=== PATIENT | female | born 1935 | race Caucasian/White ===

== ENCOUNTER 2019-02-17 10:36 | Inpatient (IN) | payer BC ==
--- NOTE | 2019-02-13 16:31 | HP ---
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 History Source: Patient Limitations to Obtaining History: No Limitations - Past Medical History Cardiovascular: Yes: AFIB, CHF, HTN, Hyperlipdemia, Other (Mitral valve repair) - Past Surgical History Past Surgical History: Yes: Stent (cardiac 1999) Additional Past Surgical History: valve repair mitral 2015 open heart surgery left partial mastectomy 2012 DCIS - Smoking History Smoking history: Never smoked Have you smoked in the past 12 months: No - Alcohol/Substance Use Hx Alcohol Use: Yes (MODERATE SOCIAL) Home Medications - Allergies Allergies/Adverse Reactions: Allergies Allergy/AdvReac Type Severity Reaction Status Date / Time latex Allergy Mild SKIN Verified 02/16/13 13:28 IRRITATION No Known Drug Allergies Allergy Verified 02/16/13 13:28 - Home Medications Home Medications: Ambulatory Orders Ascorbic Acid [Vitamin C] 1,000 mg PO HS 02/16/13 Cetirizine HCl [Zyrtec] 10 mg PO HS 02/16/13 Cholecalciferol (Vitamin D3) [Vitamin D] 1,000 unit PO HS 02/16/13 Ezetimibe/Simvastatin [Vytorin 10-40 mg Tablet] 1 each PO HS 02/16/13 Fluticasone Prop 0.05% Nasal [Flonase -] 1 - 2 spray NS DAILY PRN 02/16/13 Folic Acid - 1 mg PO HS 02/16/13 Lansoprazole [Prevacid] 30 mg PO DAILY PRN 02/16/13 Lorazepam 0.5 mg PO HS 02/16/13 Metoprolol Succinate [Toprol XL -] 50 mg PO HS 02/16/13 Multivitamin [Multivitamins] 1 each PO HS 02/16/13 Valsartan/Hydrochlorothiazide [Diovan Hct 160-12.5 mg Tablet -] 1 combo PO DAILY 02/16/13 Aspirin Coated [Ecotrin -] 81 mg PO HS #0 02/18/13 Hydrocodone Bit/Acetaminophen [Vicodin Es 7.5-750] 1 tab PO PRN PRN #0 tablet Family Disease History - Family Disease History Family Disease History: CA: Father (bladder ca 67) Physical Examination Constitutional: Yes: No Distress Breast(s): Yes: Other (diffusely nodular and dense in the middle of the left breast incision there is some retraction w?o mass well healed strnal incision no adenopathy. right breast negative) Problem List - Problems (1) Recurrent cancer of left breast Code(s): C50.912 - MALIGNANT NEOPLASM OF UNSPECIFIED SITE OF LEFT FEMALE BREAST Assessment/Plan Left total mastectomy sentenel node biopsy, lymphoscintogram possible axillary node dissection implants and alloderm by Dr Ortega
[2019-02-16 08:46] VITALS: BMI 28.3
[2019-02-17 11:59] LABS: INR 0.96 (0.83-1.09); PROTHROMBIN TIME (PATIENT) 11.3 SEC (9.7-13.0)
[2019-02-17] MEDS ORDERED: fentaNYL CITRATE 250 MCG/5 ML VIAL ONE (15:05)
[2019-02-17] MEDS ORDERED: MIDAZOLAM HCL 2 MG/2 ML SINGLE DOSE VIAL ONE (15:05)
[2019-02-17] MEDS ORDERED: PROPOFOL 20 ML ONE (15:05)
[2019-02-17] MEDS ORDERED: LIDOCAINE HCL/PF 2% SDV 5ML VIAL ONE (15:07)
[2019-02-17] MEDS ORDERED: ONDANSETRON 4 MG/2 ML VIAL IVPUSH PRN ×2 (15:26→15:48)
[2019-02-17] MEDS ORDERED: LACTATED RINGERS SOLUTION 1,000 ML IV SCH (15:30)
[2019-02-17] MEDS ORDERED: ACETAMINOPHEN 325 MG TABLET (FP) PO PRN (15:48)
[2019-02-17] MEDS ORDERED: PATIENT'S OWN MEDICATION (NON-FORMULARY) (Cetirizine Hcl 10 MG) PO SCH (16:00)
[2019-02-17] MEDS ORDERED: ISOSULFAN BLUE 10 MG/ML VIAL SQ ONE (16:05)
[2019-02-17] MEDS ORDERED: GENTAMICIN SO4 80 MG/2 ML VIAL ONE (16:18)
[2019-02-17] MEDS ORDERED: ceFAZolin SODIUM 1 GM VIAL ONE ×3 (16:19→20:55)
[2019-02-17] MEDS ORDERED: ceFAZolin SODIUM 1 GM VIAL IVPB ONE (16:30)
[2019-02-17] MEDS ORDERED: HYDROmorphone HCl 2 MG/ML VIAL ONE (17:10)
[2019-02-17] MEDS ORDERED: METOPROLOL TARTRATE 5 MG/5 ML VIAL ONE (17:40)
[2019-02-17] MEDS ORDERED: VECURONIUM BROMIDE 10 MG VIAL ONE (17:52)
[2019-02-17] MEDS ORDERED: EPHEDRINE SULFATE/0.9% NACL/PF 50 MG/10 ML SYRINGE NR ONE ×2 (18:37→18:39)
[2019-02-17] MEDS ORDERED: ACETAMINOPHEN INJECTION 100 ML IVPB ONE (20:20)
[2019-02-17] MEDS ORDERED: ACETAMINOPHEN 1000 MG/100 ML VIAL (NON FORMULARY) IVPB ONE (20:22)
[2019-02-17] MEDS: DEXTROSE 5%-0.45% SALINE 1,000 ML IV SCH (21:00)
[2019-02-17] MEDS ORDERED: CEFAZOLIN 1 GM/D5W 1 GM/50 ML BAG IVPB SCH (21:00)
[2019-02-17] MEDS ORDERED: ONDANSETRON 4 MG/2 ML VIAL ONE (21:36)
[2019-02-17] MEDS: LORazepam 0.5 MG TABLET PO SCH (22:03)
[2019-02-17] MEDS: ATORVASTATIN CA 10 MG TABLET (FP) PO SCH (23:38)
[2019-02-17] MEDS: metoPROLOL SUCCINATE 25 MG TAB.SR.24H (FP) PO SCH (23:38)
[2019-02-17] MEDS: CYCLOBENZAPRINE HCL 10 MG TABLET (FP) PO PRN (23:51)
[2019-02-18] MEDS ORDERED: DEXTROSE 5%-WATER - 50 ML IVPB ONE ×4 (02:35→21:25)
[2019-02-18] MEDS ORDERED: ceFAZolin SODIUM 1 GM VIAL ONE ×4 (02:35→21:24)
[2019-02-18] MEDS ORDERED: oxyCODONE HCL 5 MG TABLET PO PRN ×3 (03:12→15:27)
[2019-02-18] MEDS: CEFAZOLIN 1 GM in DEXTROSE 5%-WATER - 50 ML IVPB SCH ×4 (03:34→21:10)
[2019-02-18] MEDS: oxyCODONE HCL 5 MG TABLET PO PRN ×3 (06:14→23:20)
[2019-02-18 06:33] LABS: HEMATOCRIT 38.1 % (32.4-45.2); HEMOGLOBIN 13.2 GM/dL (10.7-15.3); MCHC 34.6 g/dl (32.0-36.0); MEAN CELL VOLUME 92.7 fl (80-96); MEAN PLT VOLUME 8.3 fl (7.5-11.1); PLATELET COUNT 190 K/MM3 (134-434); RBC 4.11 M/mm3 (3.60-5.2); RDW 15.1 % (11.6-15.6); WHITE BLOOD COUNT 13.9 K/mm3 (4.0-10.0)
--- NOTE | 2019-02-18 08:59 | PN ---
Progress Note, Physician Chief Complaint: Left breast cancer S/P left breast total mastectomy sentenel node biopsy reconstruction with alloderm and implant and right mastopexy History of Present Illness: patient is using spirometry, calhoun discontinued, using oxycodone for pain ,will involve cardilogy to restert her coumadin and aspirin no nausea or vomiting - Current Medication List Current Medications: Active Medications Acetaminophen (Tylenol -) 650 mg PO Q4H PRN PRN Reason: FEVER Last Admin: 02/17/19 23:51 Dose: 650 mg Atorvastatin Calcium (Lipitor -) 10 mg PO HS [facility] Last Admin: 02/17/19 23:38 Dose: 10 mg Cyclobenzaprine HCl (Flexeril -) 10 mg PO BID PRN PRN Reason: MUSCLE SPASMS Last Admin: 02/17/19 23:51 Dose: 10 mg Furosemide (Lasix -) 40 mg PO DAILY [facility] Heparin Sodium (Porcine) (Heparin -) 5,000 unit SQ BID [facility] Dextrose/Sodium Chloride (D5-1/2ns -) 1,000 mls @ 100 mls/hr IV ASDIR [facility] Last Admin: 02/17/19 21:00 Dose: 100 mls/hr Cefazolin Sodium 1 gm/ (Dextrose) 50 mls @ 100 mls/hr IVPB Q6H-IV [facility] Stop: 02/24/19 20:59 Last Admin: 02/18/19 03:34 Dose: 100 mls/hr Lactobacillus Acidophilus (Bacid -) 1 tab PO DAILY [facility] Loratadine (Claritin -) 10 mg PO DAILY [facility] Lorazepam (Ativan -) 1 mg PO BID [facility] Last Admin: 02/17/19 22:03 Dose: 1 mg Methimazole (Tapazole -) 5 mg PO DAILY [facility] Metoprolol Succinate (Toprol Xl -) 25 mg PO BID [facility] Last Admin: 02/17/19 23:38 Dose: 25 mg Ondansetron HCl (Zofran Injection) 4 mg IVPUSH Q6H PRN PRN Reason: NAUSEA AND/OR VOMITING Last Admin: 02/17/19 21:38 Dose: 4 mg Oxycodone HCl (Roxicodone -) 5 mg PO Q3H PRN PRN Reason: PAIN LEVEL 6-10 Last Admin: 02/18/19 06:14 Dose: 5 mg Pantoprazole Sodium (Protonix -) 40 mg PO DAILY [facility] Potassium Chloride (K-Dur -) 20 meq PO DAILY [facility] - Objective Vital Signs: Vital Signs Temperature 98.3 F 02/18/19 06:59 Pulse Rate 81 02/18/19 06:59 Respiratory Rate 20 02/18/19 06:59 Blood Pressure 135/85 02/18/19 06:59 O2 Sat by Pulse Oximetry (%) 100 02/17/19 22:25 Constitutional: Yes: No Distress Breast(s): Yes: Other (bilateral flaps viable incision intact with steristrips drain functioning well minimal brusion right breast small area echynosis near imframamary fold. left breast moderate echymosis) Labs: CBC, BMP 02/18/19 05:48 INR, PTT INR 0.96 (0.83-1.09) 02/17/19 10:47 Problem List - Problems (1) Recurrent cancer of left breast Code(s): C50.912 - MALIGNANT NEOPLASM OF UNSPECIFIED SITE OF LEFT FEMALE BREAST Assessment/Plan OOB with assistance calhoun DCd Iv antibiotics oxycodone prn, anesthesia to see patinet today colace prn cardilogy consult per Dr day to restar coumadin and ASA VNS service
--- NOTE | 2019-02-18 09:36 | CON.CARD ---
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 History Source: Patient Limitations to Obtaining History: No Limitations - Past Medical History Cardiovascular: Yes: AFIB, CHF, HTN, Hyperlipdemia, Other (Mitral valve repair) - Past Surgical History Past Surgical History: Yes: Stent (cardiac 1999) Additional Past Surgical History: valve repair mitral 2016 open heart surgery left partial mastectomy 2012 DCIS - History Source History Provided By: Patient, Medical Record - Past Medical History Cardio/Vascular: Yes: AFIB, CHF, HTN, Hyperlipdemia, Other (Mitral valve repair) - Past Surgical History Past Surgical History: Yes: Stent (cardiac 1999) - Alcohol/Substance Use Hx Alcohol Use: Yes (MODERATE SOCIAL) - Smoking History Smoking history: Never smoked Have you smoked in the past 12 months: No Home Medications - Allergies Allergies/Adverse Reactions: Allergies Allergy/AdvReac Type Severity Reaction Status Date / Time escitalopram [From Lexapro] Allergy Intermediate Rash Verified 02/17/19 11:35 latex Allergy Mild SKIN Verified 02/17/19 11:35 IRRITATION SEASONAL Allergy Uncoded 02/17/19 11:35 - Home Medications Home Medications: Ambulatory Orders Ascorbic Acid [Vitamin C] 980 mg PO DAILY 02/16/13 Cholecalciferol (Vitamin D3) [Vitamin D] 1,000 unit PO ASDIR 02/16/13 Lorazepam 1 mg PO BID 02/16/13 Metoprolol Succinate [Toprol XL -] 25 mg PO BID 02/16/13 Aspirin Coated [Ecotrin -] 81 mg PO HS #0 02/18/13 Cyclobenzaprine HCl 10 mg PO BID PRN 02/16/19 Furosemide [Lasix] 40 mg PO DAILY 02/16/19 Lactobacillus Acidophilus [Probiotic] 1 each PO DAILY 02/16/19 Lovastatin [Altoprev] 20 mg PO DAILY 02/16/19 Methimazole 5 mg PO DAILY 02/16/19 Pantoprazole Sodium 40 mg PO DAILY 02/16/19 Potassium Chloride [Klor-Con M20] 20 meq PO DAILY 02/16/19 Warfarin Na [Coumadin] 4 mg PO HS 02/16/19 Zolpidem Tartrate [Ambien] 10 mg PO HS 02/16/19 Cetirizine HCl [Zyrtec -] 10 mg PO PRN 02/17/19 Family Disease History - Family Disease History Family Disease History: CA: Father (bladder ca 67) Review of Systems - Review of Systems Constitutional: reports: No Symptoms Eyes: reports: No Symptoms HENT: reports: No Symptoms Neck: reports: No Symptoms Cardiovascular: reports: No Symptoms Respiratory: reports: No Symptoms Gastrointestinal: reports: No Symptoms Genitourinary: reports: No Symptoms Breasts: reports: No Symptoms Reported Musculoskeletal: reports: No Symptoms Integumentary: reports: No Symptoms Neurological: reports: No Symptoms Endocrine: reports: No Symptoms Hematology/Lymphatic: reports: No Symptoms Psychiatric: reports: No Symptoms Vital Signs: Vital Signs Temperature 98.3 F 02/18/19 06:59 Pulse Rate 81 02/18/19 06:59 Respiratory Rate 20 02/18/19 06:59 Blood Pressure 135/85 02/18/19 06:59 O2 Sat by Pulse Oximetry (%) 100 02/17/19 22:25 Constitutional: Yes: Well Nourished, No Distress, Calm Eyes: Yes: WNL, Conjunctiva Clear, EOM Intact HENT: Yes: WNL, Atraumatic, Normocephalic Neck: Yes: WNL, Supple, Trachea Midline Respiratory: Yes: WNL, Regular, CTA Bilaterally Gastrointestinal: Yes: WNL, Normal Bowel Sounds Renal/: Yes: WNL Cardiovascular: Yes: WNL, Regular Rate and Rhythm Musculoskeletal: Yes: WNL Extremities: Yes: WNL Integumentary: Yes: WNL Neurological: Yes: WNL, Alert, Oriented ...Motor Strength: WNL Psychiatric: Yes: WNL, Alert, Oriented - Other Data Labs, Other Data: CBC, BMP 02/18/19 05:48 INR, PTT INR 0.96 (0.83-1.09) 02/17/19 10:47 Imaging - Results Chest X-ray: Pending EKG: Image Reviewed (sr vps rbbb) Problem List - Problems (1) Recurrent cancer of left breast Code(s): C50.912 - MALIGNANT NEOPLASM OF UNSPECIFIED SITE OF LEFT FEMALE BREAST Assessment/Plan A/p: 84 yo female POD#1 s/p Left mastectomy adn sentinel node. Right breast mastopexy an reconstruciton with alloderm and implant AF s/p MV repair [facility] Fenton [facility] 2017 ECHO pending ekg nsr Plan; check BMP restart AC Lovenox/Coumadin as soon as safe from surgical point of viwe . Cardiac haider stable.
[2019-02-18] MEDS ORDERED: PT OWN MED DRAWER 7, Y5N ONE ×2 (09:40→17:09)
[2019-02-18] MEDS: LORazepam 0.5 MG TABLET PO SCH ×2 (09:58→21:05)
[2019-02-18] MEDS: FUROSEMIDE 40 MG TABLET (FP) PO SCH ×2 (09:59→11:10)
[2019-02-18] MEDS: LACTOBACILLUS ACIDOPHILUS 1 TABLET PO SCH (09:59)
[2019-02-18] MEDS: LORATADINE 10 MG TABLET PO SCH (10:00)
[2019-02-18] MEDS ORDERED: PATIENT'S OWN MEDICATION (NON-FORMULARY) (Lactobacillus Acidophilus [Probiotic] 1 EACH) PO SCH (10:00)
[2019-02-18] MEDS: CYCLOBENZAPRINE HCL 10 MG TABLET (FP) PO PRN ×2 (10:00→23:19)
[2019-02-18] MEDS: POTASSIUM CHLORIDE TABS 20 MEQ TABLET.ER (FP) PO SCH ×2 (10:00→11:09)
[2019-02-18] MEDS: DOCUSATE SODIUM 100 MG CAPSULE (FP) PO PRN (10:00)
[2019-02-18] MEDS: metoPROLOL SUCCINATE 25 MG TAB.SR.24H (FP) PO SCH ×2 (10:00→22:13)
[2019-02-18] MEDS: PANTOPRAZOLE 40 MG TABLET (FP) PO SCH (10:00)
[2019-02-18] MEDS ORDERED: PATIENT'S OWN MEDICATION (NON-FORMULARY) (Lovastatin [Altoprev] 20 MG) PO SCH (10:00)
[2019-02-18] MEDS: HEPARIN NA (PORCINE) 5,000 UNITS/ML 1ML VIAL SQ SCH ×3 (10:01→22:13)
[2019-02-18] MEDS: METHIMAZOLE 5 MG TABLET (FP) PO SCH (10:05)
--- NOTE | 2019-02-18 10:12 | PN ---
Progress Note (short form) - Note Progress Note: POD#1 Pt without any complaints of CP/SOB. Bra a little tight around her ribs. Some pain with movement of left arm. Vital Signs Period Temp Pulse Resp BP Sys/Reagan Pulse Ox Last 24 Hr 97.8 F-98.3 F 72-98 14-20 119-135/41-90 98-100 SAHARA: serosangnreous Left x2-45 and 60ml right 5ml GEN: A&0x3, NAD Chest: Right nipple pink and without any evidence of ischemia. Mild ecchymosis to vertical incision(dime sized) near horizontal incision. All incision c/d/i with steri-strips and no active bleeding noted. Left breast: Incision c/d/i as well as axillary incision. No evidence of ischemia. CBC, BMP 02/18/19 05:48 A/p: 84 yo female s/p Left mastectomy adn sentinel node. Right breast mastopexy an reconstruciton with alloderm and implant Dressing changed and SAHARA functioning well. Continue surgical bra Removed calhoun catheter for TOV OOB to chair and ambulate Oral pain medications. SAHARA care and VNS for home care for drains D/w Dr. Ortega
--- NOTE | 2019-02-18 12:25 | EKG ---
Test Reason : Blood Pressure : / mmHG Vent. Rate : 076 BPM Atrial Rate : 076 BPM P-R Int : 172 ms QRS Dur : 136 ms QT Int : 408 ms P-R-T Axes : 065 020 018 degrees QTc Int : 459 ms SINUS RHYTHM WITH PREMATURE SUPRAVENTRICULAR COMPLEXES RIGHT BUNDLE BRANCH BLOCK ABNORMAL ECG NO PREVIOUS ECGS AVAILABLE Confirmed by RK JULIEN MD ([id number]) on 02/18/2019 12:25:27 PM Referred By: Jenny Ayala Confirmed By:RK JULIEN MD
[2019-02-18 13:38] LABS: BLOOD UREA NITROGEN 11.7 mg/dL (7-18); CALCIUM 8.5 mg/dL (8.5-10.1); CREATININE 0.9 mg/dL (0.55-1.3); POTASSIUM 4.1 mmol/L (3.5-5.1)
[2019-02-18] MEDS ORDERED: ACETAMINOPHEN 1000 MG/100 ML VIAL (NON FORMULARY) IVPB ONE (14:03)
[2019-02-18] MEDS ORDERED: MORPHINE SULFATE 2 MG/ML VIAL IVPUSH PRN (14:05)
--- NOTE | 2019-02-18 15:20 | PN ---
Progress Note (short form) - Note Progress Note: Anesthesia post op Pt seen and examined S:alert and awake voices discomfort and unable to sleep because of noise O: Vital Signs Temperature 98.1 F 02/18/19 10:00 Pulse Rate 71 02/18/19 10:00 Respiratory Rate 20 02/18/19 10:00 Blood Pressure 131/65 02/18/19 10:00 O2 Sat by Pulse Oximetry (%) 98 02/18/19 09:00 CBC, BMP 02/18/19 05:48 02/18/19 05:48 a/P:s/p Right breat reduction and left mastectomy Eats meals. Due to her age PO pain meds were give in divided doses. Discussed about LAUNCH MANAGER. At this time will continue with PO med. Will add IV Ofirmev. Advised pt to take Benzodiazepam that she takes at home and sleeping pills if necessary. Also advised that take the whole 10mg PO Oxycontin in the AM Will be available if further pain control is necessary. Jermaine Wu MD
[2019-02-18] MEDS ORDERED: BENZOCAINE/MENTH/CETYLPYRD CL 1 EACH LOZENGE MM PRN (15:22)
[2019-02-18] MEDS ORDERED: ACETAMINOPHEN 1000 MG/100 ML VIAL (NON FORMULARY) IVPB PRN (15:24)
--- NOTE | 2019-02-18 15:38 | PN ---
Progress Note (short form) - Note Progress Note: discussed case with cardiology office and Dr Loaiza. Advised to start coumadin 4 mg this evening and she should follow up with shank turner on Saturday for INR. Dr Loaiza advised to continue SQ heparin daily. posssible discharge patient home tomorrow or Saturday. Problem List - Problems (1) Recurrent cancer of left breast Code(s): C50.912 - MALIGNANT NEOPLASM OF UNSPECIFIED SITE OF LEFT FEMALE BREAST
[2019-02-18] MEDS: DEXTROSE 5%-0.45% SALINE 1,000 ML IV SCH (16:41)
[2019-02-18] MEDS: WARFARIN NA 2 MG TABLET (UD) PO SCH ×2 (18:22→22:21)
[2019-02-18] MEDS: ATORVASTATIN CA 10 MG TABLET (FP) PO SCH (22:13)
[2019-02-18] MEDS: ACETAMINOPHEN 325 MG TABLET (FP) PO SCH (23:35)
[2019-02-19] MEDS ORDERED: ceFAZolin SODIUM 1 GM VIAL ONE ×4 (03:25→20:16)
[2019-02-19] MEDS ORDERED: DEXTROSE 5%-WATER - 50 ML IVPB ONE ×4 (03:25→20:17)
[2019-02-19] MEDS: CEFAZOLIN 1 GM in DEXTROSE 5%-WATER - 50 ML IVPB SCH ×4 (03:40→20:27)
[2019-02-19] MEDS: ACETAMINOPHEN 325 MG TABLET (FP) PO SCH ×4 (03:40→22:34)
--- NOTE | 2019-02-19 07:08 | PN ---
Progress Note (short form) - Note Progress Note: POD 2 VSS AF All tissues viable without infection or collection All SAHARA working well/ serosanguinous fluid Ambulating, Using IS Anticoagulation restarted Cont ABX Wean from [employer] ADMIN[employer]RATOR anticipate d/c home tomorrow.
--- NOTE | 2019-02-19 08:19 | PN ---
Progress Note, Physician History of Present Illness: Left breast cancer - Current Medication List Current Medications: Active Medications Acetaminophen (Tylenol -) 650 mg PO Q6H [facility] Last Admin: 02/19/19 03:40 Dose: Not Given Acetaminophen (Ofirmev Injection -) 1,000 mg IVPB Q6H PRN PRN Reason: PAIN LEVEL 4 - 6 Last Admin: 02/18/19 23:22 Dose: 1,000 mg Aspirin (Ecotrin -) 81 mg PO DAILY [facility] Atorvastatin Calcium (Lipitor -) 10 mg PO HS [facility] Last Admin: 02/18/19 22:13 Dose: 10 mg Benzocaine/Menthol (Cepacol Lozenge -) 1 each MM PRN PRN PRN Reason: SORE THROAT Cyclobenzaprine HCl (Flexeril -) 10 mg PO BID PRN PRN Reason: MUSCLE SPASMS Last Admin: 02/18/19 23:19 Dose: 10 mg Docusate Sodium (Colace -) 100 mg PO DAILY PRN PRN Reason: CONSTIPATION Last Admin: 02/18/19 10:00 Dose: 100 mg Furosemide (Lasix -) 40 mg PO DAILY [facility] Last Admin: 02/18/19 11:10 Dose: Not Given Heparin Sodium (Porcine) (Heparin -) 5,000 unit SQ BID [facility] Last Admin: 02/18/19 22:13 Dose: 5,000 unit Cefazolin Sodium 1 gm/ (Dextrose) 50 mls @ 100 mls/hr IVPB Q6H-IV [facility] Stop: 02/24/19 20:59 Last Admin: 02/19/19 03:40 Dose: 100 mls/hr Lactobacillus Acidophilus (Bacid -) 1 tab PO DAILY [facility] Last Admin: 02/18/19 09:59 Dose: 1 tab Loratadine (Claritin -) 10 mg PO DAILY [facility] Last Admin: 02/18/19 10:00 Dose: 10 mg Lorazepam (Ativan -) 1 mg PO BID [facility] Last Admin: 02/18/19 21:05 Dose: 1 mg Methimazole (Tapazole -) 5 mg PO DAILY [facility] Last Admin: 02/18/19 10:05 Dose: 5 mg Metoprolol Succinate (Toprol Xl -) 25 mg PO BID [facility] Last Admin: 02/18/19 22:13 Dose: 25 mg Morphine Sulfate (Morphine Sulfate) 1 mg IVPUSH Q6H PRN PRN Reason: PAIN LEVEL 7 - 10 Ondansetron HCl (Zofran Injection) 4 mg IVPUSH Q6H PRN PRN Reason: NAUSEA AND/OR VOMITING Last Admin: 02/17/19 21:38 Dose: 4 mg Oxycodone HCl (Roxicodone -) 10 mg PO Q4H PRN PRN Reason: PAIN LEVEL 6-10 Stop: 02/19/19 15:25 Last Admin: 02/18/19 23:20 Dose: 5 mg Pantoprazole Sodium (Protonix -) 40 mg PO DAILY [facility] Last Admin: 02/18/19 10:00 Dose: 40 mg Potassium Chloride (K-Dur -) 20 meq PO DAILY [facility] Last Admin: 02/18/19 11:09 Dose: Not Given Warfarin Sodium (Coumadin -) 4 mg PO DAILY@1800 [facility] Last Admin: 02/18/19 22:21 Dose: 4 mg - Objective Vital Signs: Vital Signs Temperature 97.6 F 02/19/19 05:31 Pulse Rate 68 02/19/19 05:31 Respiratory Rate 20 02/19/19 05:31 Blood Pressure 110/45 L 02/19/19 05:31 O2 Sat by Pulse Oximetry (%) 99 02/18/19 21:00 Constitutional: Yes: Well Nourished, No Distress, Calm Eyes: Yes: WNL HENT: Yes: WNL Neck: Yes: Supple, Trachea Midline Respiratory: Yes: Regular, CTA Bilaterally Gastrointestinal: Yes: Normal Bowel Sounds, Soft ...Rectal Exam: Yes: Deferred Genitourinary: Yes: WNL Breast(s): Yes: Other (Breast wounds clean, dry, and intact. Drains functioning well.) Musculoskeletal: Yes: WNL Extremities: Yes: WNL Wound/Incision: Yes: Clean/Dry, Well Approximated Neurological: Yes: Alert, Oriented ...Motor Strength: WNL Psychiatric: Yes: WNL Labs: CBC, BMP 02/18/19 05:48 02/18/19 05:48 INR, PTT INR 0.96 (0.83-1.09) 02/17/19 10:47 Problem List - Problems (1) Recurrent cancer of left breast Assessment/Plan: The patient is doing well POD#2 s/p left mastectomy with sentinel lymph node biopsy with left implant reconstruction and right mastopexy. Wounds clean, dry , and intact. Drains functioning well. Good pain control now on percocet. OOB ambulating today. Coumadin restarted and patient receiving heparin subQ. Plan for discharge tomorrow and arrange VNS for drain care at home. Follow up with Drs. Ayala and Jordan in 1 week. Will restart her daily baby aspirin. Code(s): C50.912 - MALIGNANT NEOPLASM OF UNSPECIFIED SITE OF LEFT FEMALE BREAST
[2019-02-19] MEDS ORDERED: PT OWN MED DRAWER 7, Y5N ONE (08:59)
[2019-02-19 09:07] LABS: INR 1.18 (0.83-1.09)
[2019-02-19] MEDS: PANTOPRAZOLE 40 MG TABLET (FP) PO SCH (09:16)
[2019-02-19] MEDS: DOCUSATE SODIUM 100 MG CAPSULE (FP) PO PRN (09:16)
[2019-02-19] MEDS: CYCLOBENZAPRINE HCL 10 MG TABLET (FP) PO PRN (09:16)
[2019-02-19] MEDS: POTASSIUM CHLORIDE TABS 20 MEQ TABLET.ER (FP) PO SCH (09:18)
[2019-02-19] MEDS: LORazepam 0.5 MG TABLET PO SCH ×2 (09:19→22:32)
[2019-02-19] MEDS: HEPARIN NA (PORCINE) 5,000 UNITS/ML 1ML VIAL SQ SCH ×2 (09:19→22:30)
[2019-02-19] MEDS: LORATADINE 10 MG TABLET PO SCH (09:20)
[2019-02-19] MEDS: LACTOBACILLUS ACIDOPHILUS 1 TABLET PO SCH (09:20)
[2019-02-19] MEDS: ASPIRIN COATED 81 MG TABLET.EC PO SCH (09:21)
[2019-02-19] MEDS: metoPROLOL SUCCINATE 25 MG TAB.SR.24H (FP) PO SCH ×2 (09:21→22:32)
[2019-02-19] MEDS: METHIMAZOLE 5 MG TABLET (FP) PO SCH (09:21)
[2019-02-19] MEDS: FUROSEMIDE 40 MG TABLET (FP) PO SCH (09:21)
--- NOTE | 2019-02-19 09:37 | SPA.POSTOP ---
- POST-OP NOTE POD #2 s/p left mastectomy with sentinel lymph node biopsy with left implant reconstruction and right mastopexy. Patient seen and examined at the bedside with Dr Loaiza present, with no complaints. She states her pain is controlled with oral pain meds. She is tolerating her diet and OOB ambulating, and voiding. She Denies n/v/f/c, CP or SOB. Last Vital Signs Temp Pulse Resp BP Pulse Ox 97.6 F 68 20 110/45 L 99 02/19/19 05:31 02/19/19 05:31 02/19/19 05:31 02/19/19 05:31 02/18/19 21:00 Vital Signs Temp 97.6 F 02/19/19 05:31 Pulse 68 02/19/19 05:31 Resp 20 02/19/19 05:31 BP 110/45 L 02/19/19 05:31 Pulse Ox 99 02/18/19 21:00 Intake & Output 02/18/19 02/18/19 02/19/19 11:59 23:59 11:59 Intake Total 1100 1000 Output Total 50 1095 35 Balance 1050 -95 -35 Intake: IV 600 300 D5-1/2Ns - 1,000 ml @ 100 600 300 mls/hr IV ASDIR [facility] Rx#: [id number] IVPB 50 Oral 450 700 Output: Drainage 50 245 35 Left Chest 45 40 10 Right Posterior Lateral 5 95 5 Chest tarik left chest #2 110 20 Urine 850 Void 850 Other: Voiding Method Toilet Toilet # Unmeasured Voids Void 1 Bowel Movement No Physical Exam General: A&Ox3, No acute distress. Pulm: unlabored resp on RA Breast: incisions c/d/i with drains in good position and functioning well, right breast with a large area raised hive like non-blanching erythema extending from inferior aspect of areola along margins of incision extending to inframammary incision, I have outlined this area today. nipple pink and well perfused. Left breast with diffuse ecchymosis throughout no significant erythema or tracking erythema. All incisions c/d/i with surrounding tissue intact and no evidence of collection or active d/c Problem List - Problems (1) Recurrent cancer of left breast Assessment/Plan: POD #2 s/p Left mastectomy and sentinel node. Right breast mastopexy and reconstruction with alloderm and implant patient doing well. 1)Dressing changed and TARIK functioning well. Continue surgical bra 2)OOB to chair and ambulate 3)Oral pain medications as ordered 4)Plan for discharge tomorrow and arrange VNS for drain care at home Evaluation and plan discussed with Dr. Ortega Code(s): C50.912 - MALIGNANT NEOPLASM OF UNSPECIFIED SITE OF LEFT FEMALE BREAST
--- NOTE | 2019-02-19 10:28 | SURG ---
Surgery Steam Fitter Supervisor Maintenance Note Steam Fitter Supervisor Maintenance: Ralph Salazar PA-C Date of Service: 02/17/19 Diagnosis: breast cancer Procedure: Left breast reduction, Right breast reconstruction with alloderm and implant I was present for the entirety of the operative procedure. For further detail, please refer to operative report. Visit type - Case Type Case Type: Scheduled - Emergency Emergency Visit: No - New patient This patient is new to me today: Yes Date on this admission: 02/19/19 - Critical Care Critical Care patient: No
[2019-02-19] MEDS: oxyCODONE HCL 5 MG TABLET PO PRN ×2 (11:46→20:28)
--- NOTE | 2019-02-19 12:51 | PN ---
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 History Source: Patient Limitations to Obtaining History: No Limitations - Past Medical History Cardiovascular: Yes: AFIB, CHF, HTN, Hyperlipdemia, Other (Mitral valve repair) - Past Surgical History Past Surgical History: Yes: Stent (cardiac 1999) Additional Past Surgical History: valve repair mitral 2015 open heart surgery left partial mastectomy 2013 DCIS - Current Medication List Current Medications: Active Medications Acetaminophen (Tylenol -) 650 mg PO Q6H [facility] Last Admin: 02/19/19 09:17 Dose: 650 mg Acetaminophen (Ofirmev Injection -) 1,000 mg IVPB Q6H PRN PRN Reason: PAIN LEVEL 4 - 6 Last Admin: 02/18/19 23:22 Dose: 1,000 mg Aspirin (Ecotrin -) 81 mg PO DAILY [facility] Last Admin: 02/19/19 09:21 Dose: 81 mg Atorvastatin Calcium (Lipitor -) 10 mg PO HS [facility] Last Admin: 02/18/19 22:13 Dose: 10 mg Benzocaine/Menthol (Cepacol Lozenge -) 1 each MM PRN PRN PRN Reason: SORE THROAT Cyclobenzaprine HCl (Flexeril -) 10 mg PO BID PRN PRN Reason: MUSCLE SPASMS Last Admin: 02/19/19 09:16 Dose: 10 mg Docusate Sodium (Colace -) 100 mg PO DAILY PRN PRN Reason: CONSTIPATION Last Admin: 02/19/19 09:16 Dose: 100 mg Furosemide (Lasix -) 40 mg PO DAILY [facility] Last Admin: 02/19/19 09:21 Dose: Not Given Heparin Sodium (Porcine) (Heparin -) 5,000 unit SQ BID [facility] Last Admin: 02/19/19 09:19 Dose: 5,000 unit Cefazolin Sodium 1 gm/ (Dextrose) 50 mls @ 100 mls/hr IVPB Q6H-IV [facility] Stop: 02/24/19 20:59 Last Admin: 02/19/19 09:13 Dose: 100 mls/hr Lactobacillus Acidophilus (Bacid -) 1 tab PO DAILY [facility] Last Admin: 02/19/19 09:20 Dose: 1 tab Loratadine (Claritin -) 10 mg PO DAILY [facility] Last Admin: 02/19/19 09:20 Dose: 10 mg Lorazepam (Ativan -) 1 mg PO BID [facility] Last Admin: 02/19/19 09:19 Dose: 1 mg Methimazole (Tapazole -) 5 mg PO DAILY [facility] Last Admin: 02/19/19 09:21 Dose: 5 mg Metoprolol Succinate (Toprol Xl -) 25 mg PO BID [facility] Last Admin: 02/19/19 09:21 Dose: 25 mg Morphine Sulfate (Morphine Sulfate) 1 mg IVPUSH Q6H PRN PRN Reason: PAIN LEVEL 7 - 10 Ondansetron HCl (Zofran Injection) 4 mg IVPUSH Q6H PRN PRN Reason: NAUSEA AND/OR VOMITING Last Admin: 02/17/19 21:38 Dose: 4 mg Oxycodone HCl (Roxicodone -) 10 mg PO Q4H PRN PRN Reason: PAIN LEVEL 6-10 Stop: 02/19/19 15:25 Last Admin: 02/19/19 11:46 Dose: 10 mg Pantoprazole Sodium (Protonix -) 40 mg PO DAILY [facility] Last Admin: 02/19/19 09:16 Dose: 40 mg Potassium Chloride (K-Dur -) 20 meq PO DAILY [facility] Last Admin: 02/19/19 09:18 Dose: 20 meq Warfarin Sodium (Coumadin -) 4 mg PO DAILY@1800 [facility] Last Admin: 02/18/19 22:21 Dose: 4 mg - Objective Vital Signs: Vital Signs Temperature 98.6 F 02/19/19 10:00 Pulse Rate 83 02/19/19 10:00 Respiratory Rate 20 02/19/19 10:00 Blood Pressure 110/40 L 02/19/19 10:00 O2 Sat by Pulse Oximetry (%) 99 02/19/19 09:00 Labs: CBC, BMP 02/18/19 05:48 02/18/19 05:48 INR, PTT INR 1.18 (0.83-1.09) H 02/19/19 08:12
[2019-02-19] MEDS ORDERED: WARFARIN NA 2 MG TABLET (UD) PO ONE ×2 (18:00→22:00)
[2019-02-19] MEDS ORDERED: oxyCODONE HCL 5 MG TABLET PO PRN (19:46)
[2019-02-19] MEDS ORDERED: WARFARIN NA 5 MG TABLET (UD) ONE (22:22)
[2019-02-19] MEDS ORDERED: WARFARIN NA 3 MG TABLET ONE (22:22)
[2019-02-19] MEDS: ATORVASTATIN CA 10 MG TABLET (FP) PO SCH (22:30)
[2019-02-19] MEDS ORDERED: WARFARIN NA 5 MG, WARFARIN NA 3 MG PO ONE (22:30)
[2019-02-20] MEDS ORDERED: DEXTROSE 5%-WATER - 50 ML IVPB ONE ×3 (03:10→15:46)
[2019-02-20] MEDS ORDERED: ceFAZolin SODIUM 1 GM VIAL ONE ×3 (03:10→15:45)
[2019-02-20] MEDS: CEFAZOLIN 1 GM in DEXTROSE 5%-WATER - 50 ML IVPB SCH ×3 (03:15→15:53)
[2019-02-20] MEDS: ACETAMINOPHEN 325 MG TABLET (FP) PO SCH ×3 (03:18→15:52)
[2019-02-20] MEDS ORDERED: PANTOPRAZOLE 40 MG TABLET (FP) PO SCH (07:00)
--- NOTE | 2019-02-20 07:06 | PN ---
Progress Note (short form) - Note Progress Note: POD 3 All tissues viable without ischemia, collection or infection Drains serous fluid only Ambulating, on SQ heparin last INR 1.2 Breast team has been in communication with cardiology and will discharge with anticoagulation plan. no restrictions from my perspective ABX, IS f/u with me prior to 02/26 holiday. Leave all dressings on and dry
--- NOTE | 2019-02-20 09:39 | OP ---
DATE OF OPERATION: 02/17/2019 ATTENDING SURGEON: Chong Ortega MD MINE BOSS: Ralph Salazar PA-C The procedure was performed in combination with a left-sided mastectomy performed by Dr. Jenny Ayala. That portion of the procedure will be dictated by Dr. Ayala and his team. PREOPERATIVE DIAGNOSIS: Left-sided breast cancer and right-sided asymmetry to reconstructed breast. POSTOPERATIVE DIAGNOSIS: Left-sided breast cancer and right-sided asymmetry to reconstructed breast. Patient was marked in the holding area. The plan is for a right breast reduction and left breast reconstruction using acellular dermal matrix and a silicone breast implant. TITLE OF PROCEDURE: Right-sided breast reduction with left-sided breast reconstruction using acellular dermal matrix and a silicone breast implant. DESCRIPTION OF PROCEDURE: The patient was given sequential compression stockings and FUNMI hose in the holding area. She was awake and aware of all incisions and resulting scars. She was brought to the operating room and placed in a supine position. She was given appropriate antibiotics per the breast surgery team as they had been in communication with the patients oxygen equipment technician. The sequential compression devices were attached. She was given a Caceres catheter. She was prepped and draped in standard surgical fashion. Patient, procedure, side, and sites were verified. At this point, my procedure commenced by performing the reduction mammoplasty on the right breast while Dr. Ayala and his team performed the left-sided mastectomy. On the right breast, the nipple areola was traced with a 42-mm cookie-cutter. Breast was placed on a tourniquet. A 9-cm inferiorly based pedicle was marked and deepithelialized with the exception of the nipple areolar complex. At this point, skin flaps with a 2-cm thickness were elevated medially, superiorly, and laterally to the level of the chest wall. Breast tissue between the skin flaps and the deepithelialized pedicles was then excised. The tissues were oriented as medial, superior, and lateral as they are excised. The resected tissue weight was 485 g. Hemostasis was meticulously achieved. copiously irrigated. Skin was tailor-tacked to be an acceptable shape and size. Closure was performed with a half-buried mattress 2-0 nylon suture at the inverted T-point. A size 10 flat SAHARA drain was brought out through the lateral extent of the incision. Closure was then performed with a series of interrupted buried deep dermal 3-0 Monocryl suture followed by a running subcuticular 3-0 Monocryl suture in all portions of the incisions. The drain was secured with a 2-0 silk suture. At this point, the mastectomy was completed, and I was then redirected towards the left side. Gown and gloves were changed. Hemostasis was meticulously achieved. A subpectoral pocket was dissected, and the inferior medial fibers of the pectoralis major muscle were divided. The markings for the placement of the implant were made and corresponded to the contralateral inframammary fold. The AlloDerm was then oriented properly, rinsed with triple antibiotic solution, and secured to the medial, inferior, and lateral chest muñiz with a running 2-0 PDS suture. Based on the weights of the specimens and intraoperative assessment of the size for symmetry, a 650 mL SSF Allergan cohesive gel smooth, round implant was brought into the field, rinsed with triple antibiotic solution, using 1-touch technique was placed in the pocket that is left between the inferiorly placed AlloDerm and the superiorly mobilized pectoralis major muscle. The free edge of the pectoralis major muscle was then secured to the free edge of the AlloDerm with a running 2-0 PDS suture. Hemostasis was once again assured. The pocket was copiously irrigated with triple antibiotic solution. The skin was assessed for viability. It was clearly viable. Good capillary refill, no discoloration, excellent dermal bleeding as the free skin edges were trimmed with facelift scissors. There was no clinical concern for mastectomy flap ischemia. Two size 10 flat SAHARA drains were brought out through lateral stab wound incisions, secured with 2-0 silk drain sutures, one was in the inferior recess wound, the second was in the lateral and superior recesses of the wound. Closure was then performed first of the deep fatty tissue of the mastectomy skin flaps with a running 3-0 Monocryl suture. Skin was then closed with a series of interrupted buried deep dermal 3-0 Monocryl sutures followed by a running subcuticular 3-0 Monocryl suture. Several 4-0 nylons were used to perfect the closure. Steri-Strips were placed for dressings on both wounds. ABD gauze, 4x4 gauze were applied. The surgical bra was placed. Patient was awoken from anesthesia, transferred to recovery without complications. Ondina [id number]
[2019-02-20] MEDS: metoPROLOL SUCCINATE 25 MG TAB.SR.24H (FP) PO SCH (09:59)
[2019-02-20] MEDS: METHIMAZOLE 5 MG TABLET (FP) PO SCH (10:00)
[2019-02-20] MEDS: POTASSIUM CHLORIDE TABS 20 MEQ TABLET.ER (FP) PO SCH (10:01)
[2019-02-20] MEDS: FUROSEMIDE 40 MG TABLET (FP) PO SCH (10:01)
[2019-02-20] MEDS: HEPARIN NA (PORCINE) 5,000 UNITS/ML 1ML VIAL SQ SCH (10:01)
[2019-02-20] MEDS: DOCUSATE SODIUM 100 MG CAPSULE (FP) PO PRN (10:01)
[2019-02-20] MEDS: ASPIRIN COATED 81 MG TABLET.EC PO SCH (10:01)
[2019-02-20] MEDS: LORATADINE 10 MG TABLET PO SCH (10:02)
[2019-02-20] MEDS: LACTOBACILLUS ACIDOPHILUS 1 TABLET PO SCH (10:02)
[2019-02-20] MEDS: LORazepam 0.5 MG TABLET PO SCH (10:03)
[2019-02-20] MEDS: oxyCODONE HCL 5 MG TABLET PO PRN ×2 (10:08→15:49)
--- NOTE | 2019-02-20 10:18 | PN ---
Progress Note, Physician Chief Complaint: Left breast cancer S/P left total mastectomy sentenel node biopys with implant and alloderm right reduction mastopexy POD#3 History of Present Illness: patient is eatinf and pain managed with current plan. 02/19/2019 INR 1.18. repeat INR pending this am, will discuss anticoagulation plan for discharge with Dr Bernardo , She is cleared for discharge from a surgical stand point - Current Medication List Current Medications: Active Medications Acetaminophen (Tylenol -) 650 mg PO Q6H [facility] Last Admin: 02/20/19 09:57 Dose: 650 mg Acetaminophen (Ofirmev Injection -) 1,000 mg IVPB Q6H PRN PRN Reason: PAIN LEVEL 4 - 6 Last Admin: 02/18/19 23:22 Dose: 1,000 mg Aspirin (Ecotrin -) 81 mg PO DAILY [facility] Last Admin: 02/20/19 10:01 Dose: 81 mg Atorvastatin Calcium (Lipitor -) 10 mg PO HS [facility] Last Admin: 02/19/19 22:30 Dose: 10 mg Benzocaine/Menthol (Cepacol Lozenge -) 1 each MM PRN PRN PRN Reason: SORE THROAT Cyclobenzaprine HCl (Flexeril -) 10 mg PO BID PRN PRN Reason: MUSCLE SPASMS Last Admin: 02/19/19 09:16 Dose: 10 mg Docusate Sodium (Colace -) 100 mg PO DAILY PRN PRN Reason: CONSTIPATION Last Admin: 02/20/19 10:01 Dose: 100 mg Furosemide (Lasix -) 40 mg PO DAILY [facility] Last Admin: 02/20/19 10:01 Dose: 40 mg Heparin Sodium (Porcine) (Heparin -) 5,000 unit SQ BID [facility] Last Admin: 02/20/19 10:01 Dose: 5,000 unit Cefazolin Sodium 1 gm/ (Dextrose) 50 mls @ 100 mls/hr IVPB Q6H-IV [facility] Stop: 02/24/19 20:59 Last Admin: 02/20/19 09:57 Dose: 100 mls/hr Lactobacillus Acidophilus (Bacid -) 1 tab PO DAILY [facility] Last Admin: 02/20/19 10:02 Dose: 1 tab Loratadine (Claritin -) 10 mg PO DAILY [facility] Last Admin: 02/20/19 10:02 Dose: Not Given Lorazepam (Ativan -) 1 mg PO BID [facility] Last Admin: 02/20/19 10:03 Dose: Not Given Methimazole (Tapazole -) 5 mg PO DAILY [facility] Last Admin: 02/20/19 10:00 Dose: 5 mg Metoprolol Succinate (Toprol Xl -) 25 mg PO BID [facility] Last Admin: 02/20/19 09:59 Dose: 25 mg Morphine Sulfate (Morphine Sulfate) 1 mg IVPUSH Q6H PRN PRN Reason: PAIN LEVEL 7 - 10 Ondansetron HCl (Zofran Injection) 4 mg IVPUSH Q6H PRN PRN Reason: NAUSEA AND/OR VOMITING Last Admin: 02/17/19 21:38 Dose: 4 mg Oxycodone HCl (Roxicodone -) 10 mg PO Q4H PRN PRN Reason: PAIN LEVEL 6-10 Last Admin: 02/20/19 10:08 Dose: 10 mg Oxycodone HCl (Roxicodone -) 5 mg PO Q4H PRN PRN Reason: PAIN LEVEL 1-5 Pantoprazole Sodium (Protonix -) 40 mg PO DAILY@0700 [facility] Last Admin: 02/20/19 06:21 Dose: 40 mg Potassium Chloride (K-Dur -) 20 meq PO DAILY [facility] Last Admin: 02/20/19 10:01 Dose: 20 meq Warfarin Sodium (Coumadin -) 4 mg PO DAILY@1800 [facility] Last Admin: 02/18/19 22:21 Dose: 4 mg - Objective Vital Signs: Vital Signs Temperature 98.1 F 02/20/19 06:39 Pulse Rate 79 02/20/19 06:39 Respiratory Rate 20 02/20/19 06:39 Blood Pressure 119/55 L 02/20/19 06:39 O2 Sat by Pulse Oximetry (%) 99 02/19/19 21:00 Constitutional: Yes: No Distress Breast(s): Yes: Other (Bilateral skin flaps viable no hematoma or infection incision intact bilaterally dressing changed Drains functioning well) Labs: CBC, BMP 02/18/19 05:48 02/18/19 05:48 INR, PTT INR 1.18 (0.83-1.09) H 02/19/19 08:12 Problem List - Problems (1) Recurrent cancer of left breast Code(s): C50.912 - MALIGNANT NEOPLASM OF UNSPECIFIED SITE OF LEFT FEMALE BREAST Assessment/Plan patient is ready for discharge from a surgical standpoint Pain medication : percocet ,cefadroxil and colace follow up with Dr Ayala and Dr Ortega next week Drain training and VNS service INR pending will discuss anticoagulation discharge plan with business support coordinator Dr Bernardo office She should have a repeat INR saturday at business support coordinator office continue coumadin and baby ASA
[2019-02-20 10:56] LABS: INR 1.17 (0.83-1.09); PROTHROMBIN TIME (PATIENT) 13.8 SEC (9.7-13.0)
--- NOTE | 2019-02-20 11:13 | OP ---
DATE OF OPERATION: 02/17/2019 PREOPERATIVE DIAGNOSIS: Left breast cancer. POSTOPERATIVE DIAGNOSIS: Left breast cancer. PROCEDURE: Left total mastectomy with sentinel node biopsy.. ANESTHESIA: General intubated. ATTENDING SURGEON: Miko Ayala MD INTERNAL COMBUSTION ENGINE INSPECTOR: JEROME Sanchez ESTIMATED BLOOD LOSS: Minimal. COMPLICATIONS: None. DESCRIPTION OF PROCEDURE: Patient was made aware of the risks and benefits of the procedure and consented. Preoperatively, she went to Nuclear Medicine where radioactive tracer was injected into the skin. She was then placed in the supine position on the operating room table, and after general anesthesia was induced, the patient was intubated. Then, 2.5 mL of 1% isosulfan blue was locally infiltrated into the peritumoral tissue. The operative site was prepped and draped in the usual sterile fashion. Then, in approximately 10 minutes with gentle manual compression, a curvilinear incision was made in the left axilla using blunt and sharp dissection. Tissues were dissected down where a cluster of lymph nodes that were hot were identified and surgically excised and submitted to pathology. Frozen section was reported as no evidence of metastasis. Palpation of the axilla and interrogation with a Neoprobe revealed no worrisome lymph nodes or hot spots. The wound was copiously irrigated with normal saline, and hemostasis maintained with electrocautery. The procedure then turned to the breast. An elliptical incision was made around the nipple paying careful attention to get the overlying skin of the breast cancer that was at 6 o'clock. Using electrocautery, skin flaps were made superior to the clavicle, medial to the sternum, laterally to the latissimus dorsi, and when doing the inferior skin flap, it was noted that there was a very close surgical margin, so, additional anterior tissue was taken and submitted with the suture at the new anterior margin for an improved anterior margin. The breast tissue was then taken off the pectoralis muscle with electrocautery extending to the latissimus dorsi. The breast was then submitted with a short suture superior, long suture lateral, for permanent sectioning. The procedure was then turned over to Dr. Ortega who did a reconstruction of the breast. He will dictate that portion separately. MIKO AYALA M.D. [id number]
--- NOTE | 2019-02-20 12:11 | PN ---
Progress Note (short form) - Note Progress Note: Spoke to cardilologist Dr Bernardo office and conveyed the recent INR today 1.17. recommendations 8 mg tonight and 4mg on discharge and needs repeated on saturday at their office. Awaiting cardiac clearance for discharge tmr Problem List - Problems (1) Recurrent cancer of left breast Code(s): C50.912 - MALIGNANT NEOPLASM OF UNSPECIFIED SITE OF LEFT FEMALE BREAST
--- NOTE | 2019-02-20 14:05 | PN ---
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 History Source: Patient Limitations to Obtaining History: No Limitations - Past Medical History Cardiovascular: Yes: AFIB, CHF, HTN, Hyperlipdemia, Other (Mitral valve repair) - Past Surgical History Past Surgical History: Yes: Stent (cardiac 1999) Additional Past Surgical History: valve repair mitral 2015 open heart surgery left partial mastectomy 2013 DCIS - Current Medication List Current Medications: Active Medications Acetaminophen (Tylenol -) 650 mg PO Q6H [facility] Last Admin: 02/20/19 09:57 Dose: 650 mg Acetaminophen (Ofirmev Injection -) 1,000 mg IVPB Q6H PRN PRN Reason: PAIN LEVEL 4 - 6 Last Admin: 02/18/19 23:22 Dose: 1,000 mg Aspirin (Ecotrin -) 81 mg PO DAILY [facility] Last Admin: 02/20/19 10:01 Dose: 81 mg Atorvastatin Calcium (Lipitor -) 10 mg PO HS [facility] Last Admin: 02/19/19 22:30 Dose: 10 mg Benzocaine/Menthol (Cepacol Lozenge -) 1 each MM PRN PRN PRN Reason: SORE THROAT Cyclobenzaprine HCl (Flexeril -) 10 mg PO BID PRN PRN Reason: MUSCLE SPASMS Last Admin: 02/19/19 09:16 Dose: 10 mg Docusate Sodium (Colace -) 100 mg PO DAILY PRN PRN Reason: CONSTIPATION Last Admin: 02/20/19 10:01 Dose: 100 mg Furosemide (Lasix -) 40 mg PO DAILY [facility] Last Admin: 02/20/19 10:01 Dose: 40 mg Heparin Sodium (Porcine) (Heparin -) 5,000 unit SQ BID [facility] Last Admin: 02/20/19 10:01 Dose: 5,000 unit Cefazolin Sodium 1 gm/ (Dextrose) 50 mls @ 100 mls/hr IVPB Q6H-IV [facility] Stop: 02/24/19 20:59 Last Admin: 02/20/19 09:57 Dose: 100 mls/hr Lactobacillus Acidophilus (Bacid -) 1 tab PO DAILY [facility] Last Admin: 02/20/19 10:02 Dose: 1 tab Loratadine (Claritin -) 10 mg PO DAILY [facility] Last Admin: 02/20/19 10:02 Dose: Not Given Lorazepam (Ativan -) 1 mg PO BID [facility] Last Admin: 02/20/19 10:03 Dose: Not Given Methimazole (Tapazole -) 5 mg PO DAILY [facility] Last Admin: 02/20/19 10:00 Dose: 5 mg Metoprolol Succinate (Toprol Xl -) 25 mg PO BID [facility] Last Admin: 02/20/19 09:59 Dose: 25 mg Morphine Sulfate (Morphine Sulfate) 1 mg IVPUSH Q6H PRN PRN Reason: PAIN LEVEL 7 - 10 Ondansetron HCl (Zofran Injection) 4 mg IVPUSH Q6H PRN PRN Reason: NAUSEA AND/OR VOMITING Last Admin: 02/17/19 21:38 Dose: 4 mg Oxycodone HCl (Roxicodone -) 10 mg PO Q4H PRN PRN Reason: PAIN LEVEL 6-10 Last Admin: 02/20/19 10:08 Dose: 10 mg Oxycodone HCl (Roxicodone -) 5 mg PO Q4H PRN PRN Reason: PAIN LEVEL 1-5 Pantoprazole Sodium (Protonix -) 40 mg PO DAILY@0700 [facility] Last Admin: 02/20/19 06:21 Dose: 40 mg Potassium Chloride (K-Dur -) 20 meq PO DAILY [facility] Last Admin: 02/20/19 10:01 Dose: 20 meq Warfarin Sodium (Coumadin -) 4 mg PO DAILY@1800 [facility] Last Admin: 02/18/19 22:21 Dose: 4 mg - Objective Vital Signs: Vital Signs Temperature 98.1 F 02/20/19 06:39 Pulse Rate 79 02/20/19 06:39 Respiratory Rate 20 02/20/19 06:39 Blood Pressure 119/55 L 02/20/19 06:39 O2 Sat by Pulse Oximetry (%) 99 02/19/19 21:00 Eyes: Yes: WNL, Conjunctiva Clear, EOM Intact HENT: Yes: WNL, Atraumatic, Normocephalic Neck: Yes: WNL, Supple, Trachea Midline Cardiovascular: Yes: WNL, Regular Rate and Rhythm Respiratory: Yes: WNL, Regular, CTA Bilaterally Gastrointestinal: Yes: WNL, Normal Bowel Sounds Genitourinary: Yes: WNL Musculoskeletal: Yes: WNL Extremities: Yes: WNL Edema: No Integumentary: Yes: WNL Neurological: Yes: WNL, Alert, Oriented ...Motor Strength: WNL Psychiatric: Yes: WNL Labs: CBC, BMP 02/18/19 05:48 02/18/19 05:48 INR, PTT INR 1.17 (0.83-1.09) H 02/20/19 10:00 Problem List - Problems (1) Recurrent cancer of left breast Code(s): C50.912 - MALIGNANT NEOPLASM OF UNSPECIFIED SITE OF LEFT FEMALE BREAST Assessment/Plan A/p: 84 yo female POD s/p Left mastectomy adn sentinel node. Right breast mastopexy an reconstruciton with alloderm and implant AF s/p MV repair Frank Fenton [facility] 2017 ECHO pending ekg nsr Plan; cont AC Coumadin . Cardiac haider stable.
--- NOTE | 2019-02-20 15:24 | PATH ---
Surgical Pathology Report Patient Name: GENNA PIZARRO Med. Rec. #: [id number] /Age/Gender: 1935 (Age: 84) / F Account: [id number] Location: [facility] MED/SURG Taken: 02/17/2019 Received: 02/18/2019 Reported: 02/20/2019 Physicians: Jenny Ayala M.D. Specimen(s) Received A: LEFT SENTINEL LYMPH NODES B: LEFT BREAST LOWER OUTER QUADRANT ANTERIOR MARGIN C: LEFT BREAST MASTECTOMY D: RIGHT BREAST TISSUE Clinical History Left breast cancer Intraoperative Consult Diagnosis A. Left sentinel nodes, frozen section: 3 lymph nodes, negative for metastatic carcinoma. Nino Dunham M.D., 02/17/2019 Final Diagnosis A. LEFT SENTINEL LYMPH NODE, EXCISION (FS): THREE LYMPH NODES, NEGATIVE FOR METASTATIC CARCINOMA (0/3). B. LEFT BREAST LOWER OUTER QUADRANT INFERIOR MARGIN, EXCISION: BENIGN BREAST TISSUE, NEGATIVE FOR CARCINOMA. C. LEFT BREAST, MASTECTOMY: MUCINOUS CARCINOMA WITH FOCAL MICROPAPILLARY FEATURES, MEASURING 3 MM IN GREATEST DIMENSION. DUCTAL CARCINOMA IN SITU (DCIS), CRIBRIFORM AND MICROPAPILLARY TYPE, INTERMEDIATE NUCLEAR GRADE WITH NECROSIS AND ASSOCIATED CALCIFICATIONS. MARGINS ARE NEGATIVE FOR CARCINOMA. THE CLOSEST MARGINS CANNOT BE DETERMINED, HOWEVER CARCINOMA IS AT MORE THAN 1CM FROM MARGINS. LYMPHOVASCULAR INVASION NOT IDENTIFIED. PORTION OF SKIN AND NIPPLE, UNINVOLVED BY CARCINOMA. REACTIVE CHANGES AND DYSTROPHIC CALCIFICATION AT PRIOR BIOPSY SITE. PATHOLOGIC STAGE (PTNM): pT1a pN(sn)0 ALSO SEE BREAST INVASIVE CARCINOMA CASE SUMMARY BELOW. D. RIGHT BREAST TISSUE, EXCISION: BENIGN BREAST TISSUE WITH DILATED DUCTS, MICROCYSTS, AND STROMAL FIBROSIS. PORTIONS OF SKIN WITH NO DIAGNOSTIC ABNORMALITIES. Comments Breast Invasive Carcinoma: Surgical Pathology Case Summary (Based on AJCC TNM 8 th edition) Procedure _x_ Total mastectomy (including nipple-sparing and skin-sparing mastectomy) Specimen Laterality _x_ Left Tumor Size _x_ Greatest dimension of largest invasive focus >1 mm (millimeters): 3 mm Histologic Type _x_ Mucinous carcinoma Histologic Grade ([place] Histologic Score) Glandular (Acinar)/Tubular Differentiation _x_ Score 3 (<10% of tumor area forming glandular/tubular structures) Nuclear Pleomorphism _x_ Score 2 Mitotic Rate _x_ Score 1 Overall Grade _x__ Grade 2 (scores of 6 or 7) Tumor Focality _x_ Single focus of invasive carcinoma Ductal Carcinoma In Situ (DCIS) _x_ DCIS is present in specimen _x_ Positive for extensive intraductal component (EIC) Size (extent) of DCIS: Estimated size (extent) of DCIS is at least (millimeters): 12 mm Number of blocks with DCIS: 3 Number of blocks examined: 26 Margins Invasive Carcinoma Margins _x_ Uninvolved by invasive carcinoma Distance from closest margin (millimeters): > 10 mm Closest margins cannot be determined: No margins are included in the slide with carcinoma DCIS Margins _x_ Uninvolved by DCIS Distance from closest margin (millimeters): > 10 mm Closest margins cannot be determined: No margins are included in the slide with carcinoma Regional Lymph Nodes _x_ Uninvolved by tumor cells Number of Lymph Nodes Examined: 3 Number of [place] Nodes Examined: 3 Extranodal Extension: _x_ Not identified Treatment Effect _x_ No known presurgical therapy Lymphovascular Invasion _x_ Not identified Pathologic Stage Classification (pTNM, AJCC 8th Edition) Primary Tumor (Invasive Carcinoma) (pT) _x_ pT1a: Tumor >1 mm but =5 mm in greatest dimension (round any measurement >1.0-1.9mm to 2 mm) Regional Lymph Nodes (pN) Category (pN) _x_ pN0: No regional lymph node metastasis identified or ITCs only Biomarker Studies Results of ER and SD studies performed on this specimen (block# C8) at [facility] are as follows: ER (clone [id number] mouse monoclonal antibody by [employer]): 95% nuclear staining with strong and moderate intensity (positive). SD (clone16 mouse monoclonal antibody by [employer]): 50 % nuclear staining with moderate intensity (positive). Results of Her2 and Ki67 studies will be reported separately in an addendum. Positive and negative controls (internal if applicable) show appropriate results. Formalin fixation is within current ASCO/CAP recommendations for ER, SD and Her2 testing. Cold ischemic times: unknown. Electronically Signed Chris Dunham M.D. Addendum Reported: 02/23/2019 Addendum Diagnosis Results of Her2 (IHC) & Ki-67 studies performed on block "C8 " at [place], [place] ([id number]) are as follows: Her2 IHC (EP3 from [employer], formerly known as [id number], using [employer] Polymer Refine detection kit): 0 (Negative). Ki-67: ~5% (Low proliferative index.) Positive and negative controls (internal if applicable) show appropriate results. Belkys Nguyen M.D. Gross Description A. Received fresh labeled "left sentinel node," are 3 lymph nodes ranging from 0.5-2.0 cm in greatest dimension. The specimens are submitted for frozen section. The frozen section residue is entirely submitted in 3 cassettes as follows: 1-largest lymph node; 2-bisected medium lymph node; 3-smallest lymph node. B. Received in formalin labeled "left breast lower outer quadrant anterior margin," is a 2.7 x 1.3 x 0.5 cm portion of fibroadipose tissue with a clip marking the new margin, per the surgeon. The new margin is inked black and the specimen is serially sectioned. C. Received in formalin, labeled "left breast," is a 1232 gram, 23.0 x 19.5 x 6.0 cm. left mastectomy specimen with a short suture marking the superior aspect and a long suture marking the lateral aspect of the specimen, per the surgeon. The anterior surface displays a 12.0 x 6.5 cm colbert, elliptical portion of skin with a 1.0 cm in diameter nipple. The deep margin is inked black and the anterior soft tissue margin is inked blue. The specimen is serially sectioned from medial to lateral. Sectioning reveals a 4.0 x 4.0 x 2.5 cm hemorrhagic previous biopsy cavity in the lower outer quadrant (LOQ). The cavity is surrounded by abundant dense, firm fibrosis and fat necrosis. There is a 1.0 x 0.9 x 0.8 cm firm nodule adjacent to the biopsy cavity, possibly consistent with a mass. The possible mass is 3 cm from the deep margin. The remaining breast parenchyma displays foci of white fibrous tissue. [employer] sections are submitted in 23 cassettes as follows: 1-serially sectioned nipple; 2-subareolar shave; 3-9-zpoozbfg LOQ mass adjacent to biopsy cavity; 7-9-LOQ previous biopsy cavity with surrounding fibrosis; 53-36-ycpreipttr firm fibrosis surrounding previous biopsy cavity; 62-89-ldtaqjycby LOQ tissue; 16-upper outer quadrant; 17-18-upper inner quadrant; 19-20-lower inner quadrant; 21-anterior soft tissue margin; 22-skin; 23-deep margin. Time to formalin fixation: Unknown Formalin fixation time: Approximate 24 hours. D. Received in formalin labeled "right breast tissue," is a 475 g, 19.0 x 12.0 x 5.5 cm aggregate of multiple unoriented portions of skin and fibroadipose tissue. The epidermal surfaces are unremarkable. Sectioning reveals foci of white fibrous tissue. No definitive mass is identified. Gr[employer] sections are submitted in 4 cassettes. 02/18/2019 [facility]02/18/2019
[2019-02-20 17:26] VITALS: BP 151/63; PULSE 80; TEMP 98.2
[2019-02-20] MEDS ORDERED: WARFARIN NA 2 MG TABLET (UD) PO ONE ×2 (18:00)
== END 2019-02-20 19:09 | disposition home health service (06) | DRG 581 ==
LOC: JSAMEDAYSX 10:36 → J8W 22:49
PROVIDERS: ADMIT Surgery Surgical Oncology; ATTEND Surgery Surgical Oncology
PROC: 0HUU0KZ Supplement Left Breast with Nonautologous Tissue Substitute, Open Approach (ICD-10-PCS; 2019-02-17)
PROC: 0HBT0ZZ Excision of Right Breast, Open Approach (ICD-10-PCS; 2019-02-17)
PROC: 0HTU0ZZ Resection of Left Breast, Open Approach (ICD-10-PCS; principal; 2019-02-17 13:30)
PROC: 07B60ZX Excision of Left Axillary Lymphatic, Open Approach, Diagnostic (ICD-10-PCS; 2019-02-17 13:30)
PROC: 0HUU0JZ Supplement Left Breast with Synthetic Substitute, Open Approach (ICD-10-PCS; 2019-02-17 13:30)
PROC: 0HBU0ZX Excision of Left Breast, Open Approach, Diagnostic (ICD-10-PCS; 2019-02-17 13:30)
DX: C50.912 Malignant neoplasm of unspecified site of left female breast (principal); Z17.0 Estrogen receptor positive status [ER+]; I48.91 Unspecified atrial fibrillation; I11.0 Hypertensive heart disease with heart failure; I50.9 Heart failure, unspecified; E78.5 Hyperlipidemia, unspecified; Z95.4 Presence of other heart-valve replacement; Z95.5 Presence of coronary angioplasty implant and graft; Z80.52 Family history of malignant neoplasm of bladder
CPT/HCPCS: 36415; 78195-TC; 80048; 84443; 85027; 85610; 85730; 86850; 86900; 86901; 88305-TC; 88307-TC; 88331-TC; 88332; 93005; 93010; 94760; A9541; J0131; J1644

== ENCOUNTER 2019-04-28 16:03 | Day surgery (SDC) | payer BC ==
[2019-04-24 17:59] VITALS: BMI 27.4
[2019-04-28] MEDS ORDERED: EPHEDRINE SULFATE/0.9% NACL/PF 50 MG/10 ML SYRINGE NR ONE (16:25)
[2019-04-28] MEDS ORDERED: SUCCINYLCHOLINE CHLORIDE 200 MG/10 ML SYRINGE ONE (16:25)
[2019-04-28] MEDS ORDERED: PROPOFOL 20 ML ONE (16:25)
[2019-04-28] MEDS ORDERED: MIDAZOLAM HCL 2 MG/2 ML SINGLE DOSE VIAL ONE (16:25)
[2019-04-28] MEDS ORDERED: ROCURONIUM BROMIDE 50 MG/5 ML SYRINGE ONE (16:33)
[2019-04-28 17:02] LABS: INR 1.04 (0.83-1.09); PROTHROMBIN TIME (PATIENT) 12.3 SEC (9.7-13.0)
[2019-04-28 17:05] LABS: ACTIVATED PTT 27.8 SECONDS (25.2-36.5)
[2019-04-28] MEDS ORDERED: GENTAMICIN SO4 80 MG/2 ML VIAL ONE (18:05)
[2019-04-28] MEDS ORDERED: ceFAZolin SODIUM 1 GM VIAL ONE (18:05)
[2019-04-28] MEDS ORDERED: GENTAMICIN SO4 80 MG/2 ML VIAL IVPB ONE (18:57)
[2019-04-28] MEDS ORDERED: ceFAZolin SODIUM 1 GM VIAL IVPB ONE (18:57)
[2019-04-28] MEDS ORDERED: BACITRACIN 50,000 UNITS VIAL TP ONE (18:57)
[2019-04-28] MEDS ORDERED: ACETAMINOPHEN 325 MG TABLET (FP) PO PRN (21:02)
[2019-04-28] MEDS ORDERED: ONDANSETRON 4 MG/2 ML VIAL IVPUSH PRN (21:02)
[2019-04-28] MEDS ORDERED: oxyCODONE HCL 5 MG TABLET PO PRN (21:02)
[2019-04-28] MEDS ORDERED: MORPHINE SULFATE 2 MG/ML VIAL IVPUSH PRN (21:13)
[2019-04-28] MEDS ORDERED: ONDANSETRON 4 MG/2 ML VIAL IVPB PRN (21:13)
[2019-04-28] MEDS ORDERED: LACTATED RINGERS SOLUTION 1,000 ML IV SCH ×2 (21:15)
[2019-04-28] MEDS ORDERED: PATIENT'S OWN MEDICATION (NON-FORMULARY) (Cetirizine Hcl 10 MG) PO SCH (21:15)
[2019-04-28] MEDS ORDERED: traMADol HCL 50 MG TABLET PO PRN (21:15)
--- NOTE | 2019-04-28 21:20 | OP ---
Operative Note - Note: Operative Date: 04/28/19 Pre-Operative Diagnosis: complication of left breast reconstruction Operation: left breast capsulectomy with implant removal andplacement of tissue drug safety coordinator Findings: no evidence of infection Implants: [id number] tissue drug safety coordinator Post-Operative Diagnosis: Same as Pre-op Surgeon: Chong Ortega Anesthesia: General Drains & Tubes with Location: tarik x 1 Operative Report Dictated: Yes
[2019-04-28] MEDS ORDERED: ZOLPIDEM TARTRATE 5 MG TABLET PO PRN (22:00)
--- NOTE | 2019-04-28 22:46 | OP ---
DATE OF OPERATION: 04/28/2019 TITLE OF PROCEDURE: Left reconstructive breast periprosthetic capsulectomy with removal of existing breast implant, washout of breast, SPY angiography of breast skin, and new breast reconstruction by tissue advance agent placement. SURGEON: Chong Mcneill M.D. GAG WRITER: None ANESTHESIA: General endotracheal anesthesia ANESTHESIOLOGIST: Mariia Young D.O. 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 INDICATION: The patient and family are counseled on all risks, benefits, and alternatives as well as limitations to the operation. She is seen in the holding area. She is marked on the appropriate breast. There is no sign of infection or cellulitis. It is discussed with the patient as was discussed with her primary care doctor this morning that the most conservative tactic would be to remove the implant entirely and perform a delayed reconstruction. This is explained. The patient is highly motivated to salvage this breast reconstruction and wants to attempt to replace the implant with a tissue advance agent. I explained to the patient the potential risk of further wound healing complications or infection which she understands and agrees to proceed. The patient is given FUNMI hose and sequential compression stockings in the holding area. DESCRIPTION OF PROCEDURE: She is brought to the operating room and placed in supine position. Proper positioning aids and padding are used. After anesthesia is given, she is prepped and draped in the standard surgical fashion. The timeout is called. Patient procedure, side, site are verified. At this point the left breast is marked for excision of any ischemic appearing skin. SPY angiography is then used to assess the limits of perfusion with the skin under tension. This is marked and all skin and underlying AlloDerm directly underneath this ischemic skin is then removed. Hemostasis is achieved. A capsulectomy is then performed leaving any well incorporated AlloDerm on the inferior skin flap. Any AlloDerm that is not perfectly incorporated is removed. Residual tissues are vigorously curetted. The wound is then irrigated with pulse lavage 3 L normal saline with 50,000 units of bacitracin, 80 mg of gentamicin and a gram of Ancef. It should be noted that patient was given 2 g Ancef IV prior to incision. At this point, a capsule is otherwise well healed. There is no sign of any periprosthetic fluid at all. There is no evidence of any infection. There is also good evidence of a well formed capsule that has the implant from the surrounding tissue where the wound breakdown was. Nevertheless, a culture of the underlying tissues had been taken prior to any irrigation. This is done only in the case that future infection should arise, then we would have a culture if required. An Allergan style [id number] is brought onto the field, is irrigated with normal saline sterilely. Using new gloves it is evacuated of all air. It is oriented in the pocket. All 6 suture tabs are used to secure it to position with 2-0 PDS suture. A size 10 flat SAHARA drain is then brought out through separate stab wound in the inframammary fold secure with 2-0 silk nylon suture. The deep tissues including the incorporated AlloDerm are then closed with a running 3-0 Monocryl suture. The deep dermis is approximated with a series of interrupted buried deep dermal 3-0 Monocryl suture, and the skin was approximated with a running subcuticular 3-0 Monocryl suture. Drain is placed to bulb suction. All tissues appear pink and viable. The dressings are applied with half-inch Steri-Strips, 4x4 gauze, ABD gauze, and an Hima wrap. Patient is awoken from anesthesia, having tolerated procedure well, transferred to recovery without complications. It should be noted that there is zero saline in the tissue advance agent at the time of closure. CHONG MCNEILL M.D. [id number]
[2019-04-28] MEDS: metoPROLOL SUCCINATE 25 MG TAB.SR.24H (FP) PO SCH (23:19)
[2019-04-29] MEDS ORDERED: CEFAZOLIN 1 GM/D5W 1 GM/50 ML BAG IVPB SCH (02:00)
[2019-04-29] MEDS ORDERED: CEFAZOLIN 1 GM in DEXTROSE 5%-WATER - 50 ML IVPB SCH (02:15)
[2019-04-29] MEDS ORDERED: ceFAZolin SODIUM 1 GM VIAL ONE ×2 (02:38→08:44)
[2019-04-29] MEDS ORDERED: DEXTROSE 5%-WATER - 50 ML IVPB ONE ×2 (02:39→08:44)
[2019-04-29] MEDS: CEFAZOLIN 1 GM in DEXTROSE 5%-WATER - 50 ML IVPB SCH ×2 (02:47→09:38)
[2019-04-29] MEDS: oxyCODONE HCL 5 MG TABLET PO PRN ×2 (06:36→10:48)
--- NOTE | 2019-04-29 08:14 | PN ---
Progress Note (short form) - Note Progress Note: All tissues viable without evidence of ischemia, collection, or infection VSS AF Pain well controlled oob ambulating this AM Continuing on prophylactic abx ok for discharge today.
[2019-04-29] MEDS: metoPROLOL SUCCINATE 25 MG TAB.SR.24H (FP) PO SCH (09:37)
[2019-04-29] MEDS ORDERED: PATIENT'S OWN MEDICATION (NON-FORMULARY) (Lovastatin [Altoprev] 20 MG) PO SCH (10:00)
[2019-04-29] MEDS ORDERED: METHIMAZOLE 5 MG TABLET (FP) PO SCH (10:00)
[2019-04-29] MEDS ORDERED: POTASSIUM CHLORIDE TABS 20 MEQ TABLET.ER (FP) PO SCH (10:00)
[2019-04-29] MEDS ORDERED: PATIENT'S OWN MEDICATION (NON-FORMULARY) (Lactobacillus Acidophilus [Probiotic] 1 EACH) PO SCH (10:00)
[2019-04-29] MEDS ORDERED: ASCORBIC ACID PO SCH (10:00)
[2019-04-29] MEDS ORDERED: PANTOPRAZOLE 40 MG TABLET (FP) PO SCH (10:00)
[2019-04-29] MEDS ORDERED: PATIENT'S OWN MEDICATION (NON-FORMULARY) (Anastrozole [Arimidex -] 1 MG) PO SCH (10:00)
[2019-04-29 11:21] VITALS: BP 99/53; PULSE 81; TEMP 99.1
--- NOTE | 2019-04-30 17:45 | PATH ---
Surgical Pathology Report Patient Name: GENNA PIZARRO [facility]. Rec. #: [id number] /Age/Gender: 1935 (Age: 84) / F Account: [id number] Location: [facility] SURGICAL Taken: 04/28/2019 Received: 04/29/2019 Reported: 04/30/2019 Physicians: Chong Ortega Specimen(s) Received A: LEFT BREAST IMPLANT B: LEFT BREAST TISSUE Clinical History Complication of left breast implant Left breast capsulectomy, Implant removal, placement of tissue quantitative associate Final Diagnosis A. LEFT BREAST IMPLANT, REMOVAL: CONSISTENT WITH BREAST IMPLANT. GROSS EXAMINATION ONLY. B. LEFT BREAST TISSUE, EXCISION: PORTIONS OF SKIN, SUBCUTANEOUS TISSUE, AND FIBROUS TISSUE CONSISTENT WITH CAPSULE SHOWING FOCAL SEVERE ACUTE AND CHRONIC INFLAMMATION, FAT NECROSIS WITH HISTIOCYTIC REACTION INCLUDING FOREIGN BODY TYPE MULTINUCLEATE GIANT CELLS. Electronically Signed Chris Dunham M.D. Gross Description A. Received in the container, labeled "left breast implant" consists of a breast implant weighing 655 grams measuring 18 x 15 x 6 cm. The implant surface appears to be intact. It was labeled with A ClickSquaredAN, 650 cc, lot [id number]. Gross examination only if it B. Received in formalin, labeled "left breast tissue" on multiple irregular portions of skin and membranous soft tissue. The largest the skin measuring 17 x 2.5 x 2.7 cm with serial sutures at the center of the skin is present. Underneath the skin attached membranous fibrotic tissue grossly consistent with breast capsule. Separate multiple fibromembranous tissue and fibroadipose tissue together measures 8 x 7 x 0.3 cm in aggregate are also present. Packer sections submitted in 2 cassettes. __ KWS/04/29/2019 sulki/04/29/2019
== END 2019-04-29 12:01 | disposition home or self-care (01) ==
LOC: JASU-SURG 16:03 → J8W 22:41 → JASU-SURG 04-29 12:01
PROVIDERS: ATTEND Plastic Surgery
PROC: 0HHU0NZ Insertion of Tissue Expander into Left Breast, Open Approach (ICD-10-PCS; 2019-04-28)
PROC: 0HPU0JZ Removal of Synthetic Substitute from Left Breast, Open Approach (ICD-10-PCS; principal; 2019-04-28 17:00)
DX: T85.41XA Breakdown (mechanical) of breast prosthesis and implant, initial encounter (principal); S21.102D Unspecified open wound of left front wall of thorax without penetration into thoracic cavity, subsequent encounter; C50.911 Malignant neoplasm of unspecified site of right female breast; Y83.8 Other surgical procedures as the cause of abnormal reaction of the patient, or of later complication, without mention of misadventure at the time of the procedure; Y92.89 Other specified places as the place of occurrence of the external cause
CPT/HCPCS: 36415; 85610; 85730; 87070; 87205; 88300-TC; 88305-TC; 94760

== ENCOUNTER 2019-08-25 18:25 | Day surgery (SDC) | payer BC ==
[2019-08-21 15:12] VITALS: BMI 29.0
--- NOTE | 2019-08-25 17:34 | OP ---
Operative Note - Note: Operative Date: 08/25/19 Pre-Operative Diagnosis: left breast cancer Operation: left breast capsulectomy with implant exchange Post-Operative Diagnosis: Same as Pre-op Surgeon: Chong Ortega Compliance Lead: Maya Mathews Anesthesia: General Drains & Tubes with Location: tarik left breast
--- NOTE | 2019-08-25 18:19 | OP ---
DATE OF OPERATION: 08/25/2019 PROCEDURES: 1. Left reconstructed breast periprosthetic capsulectomy. 2. Removal of intact implant on left breast. 3. Placement of new saline breast prosthesis implant on left breast. ATTENDING SURGEON: Chong Ortega MD MANAGER IMAGING: JEROME London ANESTHESIA: General endotracheal anesthesia with an additional local infiltration of Exparel to the operative tissues. The Exparel dose is 20 mL of Exparel mixed with 20 mL of 0.25% Marcaine plain. A total of 30 mL of this mixture is given. DESCRIPTION OF PROCEDURE: The patient is marked in the holding area. She and her family are counseled on the nature of the operation as a salvage attempt for a poorly healing tissue building equipment inspector. They understand the options of removing the tissue building equipment inspector, performing autologous reconstruction, or attempting explantation with capsulotomy and re-implantation with re-closure over a drain. They understand the risk of potential infection or wound healing complications. They do not want to remove the implant altogether, and they do not want autologous reconstruction, and they are willing to attempt this operation as a salvage attempt with the understanding that if it does not work the reconstruction will be removed. The patient is given ampicillin and gentamicin preoperatively. She is given FUNMI hose and sequential compression stockings. She was brought to the operating room and placed in a supine position. Pressure points were carefully padded and checked by surgical and anesthesia teams. She is then prepped and draped in standard surgical fashion. Antibiotics were given. A time-out is called. Patient, procedure site, sides are verified. At this point, an incision was made around an open sinus cavity on the lateral extent of the reconstructed breast. Immediately subcutaneously the implant is encountered, and it is determined that the wound/sinus cavity communicates directly to the capsule and the implant. With this recognition, the decision was made for capsulectomy and thorough washout. All extent of the involved capsule is removed. Hemostasis is meticulously achieved. To accommodate the round saline implant that is planned, a superior extension of the pocket is performed. The pocket is then pulsatile lavage irrigated with standard triple antibiotic solution 3 L. New gloves are placed, and an Allergan/NatFoodye 68 HP Smooth, Round, High Profile saline implant is then brought onto the field. It is rinsed with triple antibiotic solution. It is evacuated of all air. It is placed and filled in such using a closed filling system to the bottom of the fill range of the implant, which is 425 mL. This is 15% smaller than the tissue building equipment inspector that was 480 that was removed. The soft tissues are closed with a running 3-0 Monocryl suture. The lateral aspect of the wound space is closed with a series of 2-0 PDS sutures. The dermis is closed with a series of interrupted, buried, deep dermal 3-0 Monocryl suture, and the skin is then finally closed with a running, subcuticular 3-0 Monocryl suture. The closure is performed over a size 10 flat J-P drain, which is brought out through a separate inferolateral stab wound incision secured with a 2-0 silk drain suture. As per routine, nitroglycerin paste was used on the skin edges, and Xeroform and bacitracin are applied. A surgical bra is placed. Drain is placed to bulb suction. Patient awoken from anesthesia having tolerated procedure well. Transferred to recovery without complication. Ondina [id number]
[~2019-08-25 18:25] MED LIST: BACITRACIN 15 GM TUBE TOPICAL OINTMENT ONE; BUPIVACAINE HCL/PF 2.5 MG/ML - 30 ML VIAL IJ ONE; BUPIVACAINE LIPOSOME/PF (EXPAREL) 266 MG/20 ML VIAL ONE; CYCLOBENZAPRINE HCL 10 MG TABLET (FP) PO PRN; DEXAMETHASONE SOD PHOSPHATE 4 MG/1 ML VIAL ONE; GENTAMICIN SO4 80 MG/2 ML VIAL ONE; LACTATED RINGERS SOLUTION 1,000 ML IV SCH; LORazepam 1 MG TABLET PO PRN; MORPHINE SULFATE 2 MG/ML VIAL IVPUSH PRN; NITROGLYCERIN 2% OINTMENT - 1GM PACKET TD ONE; ONDANSETRON 4 MG/2 ML VIAL IVPB PRN; ONDANSETRON 4 MG/2 ML VIAL ONE; PANTOPRAZOLE 40 MG TABLET (FP) PO PRN; PHENYLEPHRINE HCL 10 MG/1 ML SINGLE DOSE VIAL ONE; PIPERACILLIN/TAZOB 3.375 GM 3.375 GM in DEXTROSE 5%-WATER - 50 ML IVPB SCH; PROPOFOL 20 ML ONE; SODIUM CHLORIDE 0.45% 1,000 ML IV SCH; SUCCINYLCHOLINE CHLORIDE 200 MG/10 ML SYRINGE ONE; ceFAZolin SODIUM 1 GM VIAL ONE
[2019-08-25] MEDS ORDERED: PIPERACILLIN/TAZOBACTAM 3.375 GM VIAL IVPB ONE (18:33)
[2019-08-25] MEDS ORDERED: morphine CARPU-JECT 2 MG/1 ML DISP.SYRIN ONE (18:33)
[2019-08-25] MEDS ORDERED: DEXTROSE 5%-WATER - 50 ML IVPB ONE (18:34)
[2019-08-25] MEDS: PIPERACILLIN/TAZOB 3.375 GM 3.375 GM in DEXTROSE 5%-WATER - 50 ML IVPB SCH (18:48)
[2019-08-25] MEDS: metoPROLOL SUCCINATE 25 MG TAB.SR.24H (FP) PO SCH (21:45)
[2019-08-25] MEDS: traMADol HCL 50 MG TABLET PO PRN (21:46)
[2019-08-25] MEDS ORDERED: ZOLPIDEM TARTRATE 5 MG TABLET PO PRN (22:00)
[2019-08-25] MEDS ORDERED: ROSUVASTATIN CA 20 MG TABLET (FP) PO SCH (22:00)
[2019-08-25] MEDS ORDERED: LORazepam 1 MG TABLET PO SCH (22:00)
[2019-08-26] MEDS ORDERED: PIPERACILLIN/TAZOBACTAM 3.375 GM VIAL IVPB ONE ×2 (02:07→08:13)
[2019-08-26] MEDS ORDERED: DEXTROSE 5%-WATER - 50 ML IVPB ONE ×2 (02:08→08:14)
[2019-08-26] MEDS: PIPERACILLIN/TAZOB 3.375 GM 3.375 GM in DEXTROSE 5%-WATER - 50 ML IVPB SCH ×2 (02:12→09:32)
[2019-08-26] MEDS: traMADol HCL 50 MG TABLET PO PRN (09:31)
[2019-08-26] MEDS: metoPROLOL SUCCINATE 25 MG TAB.SR.24H (FP) PO SCH (09:31)
[2019-08-26] MEDS ORDERED: POTASSIUM CHLORIDE TABS 20 MEQ TABLET.ER (FP) PO SCH (10:00)
[2019-08-26] MEDS ORDERED: ANASTROZOLE 1 MG TABLET PO SCH (10:00)
[2019-08-26] MEDS ORDERED: LACTOBACILLUS ACIDOPHILUS 1 TABLET PO SCH (10:00)
[2019-08-26] MEDS ORDERED: FUROSEMIDE 40 MG TABLET (FP) PO SCH (10:00)
[2019-08-26 11:40] VITALS: BP 122/46; PULSE 90; TEMP 98.4
--- NOTE | 2019-08-26 12:23 | PN ---
Progress Note (short form) - Note Progress Note: POD 1 Pain is well controlled Meets all d/c criteria Ambulating, suzette reg diet. One low grade fever which resolved immediately with incentive spirometry Dressings changed No collection, erythema or any evidence of infection SAHARA minimal serous fluid OK for discharge with instructions
--- NOTE | 2019-08-28 13:50 | PATH ---
Surgical Pathology Report Patient Name: GENNA PIZARRO Med. Rec. #: [id number] /Age/Gender: 1935 (Age: 84) / F Account: [id number] Location: [facility] Taken: 08/25/2019 Received: 08/25/2019 Reported: 08/28/2019 Physicians: Chong Ortega Specimen(s) Received LEFT BREAST CAPSULE & TISSUE MERCHANDISING SPECIALIST Clinical History Breast cancer Final Diagnosis BREAST CAPSULE AND TISSUE MERCHANDISING SPECIALIST, LEFT, EXCISION AND REMOVAL: FIBROUS CAPSULE WITH MILD ACUTE AND CHRONIC INFLAMMATION, HISTIOCYTIC INFILTRATE, AND FOCAL GIANT CELL REACTION WITH ASSOCIATED RARE POLARIZABLE FOREIGN BODY MATERIAL. TISSUE MERCHANDISING SPECIALIST. MACROSCOPIC DIAGNOSIS. Electronically Signed Belkys Nguyen M.D. Gross Description Received in formalin labeled "left breast capsule and tissue flatwork finisher hand," is a 16.0 x 12.0 x 1.5 cm colbert foreign body with a focal defect, consistent with a breast tissue flatwork finisher hand. Separately received within the same container is a 9.0 x 5.8 x 0.6 cm aggregate of multiple unoriented portions of fibrous tissue, consistent with a breast capsule. Hand Binder Cutter sections are submitted in one cassette. 08/27/2019 saudi08/27/2019
--- NOTE | 2019-08-31 12:13 | SURG ---
Surgery Inside Sales Advertising Executive Note Inside Sales Advertising Executive: Maya Mathews PA-C Date of Service: 08/25/19 (t-6) Diagnosis: left breast cancer Procedure: left breast capsulectomy with implant exchange I was present for the entirety of the operative procedure. For further detail, please refer to operative report. Visit type - Case Type Case Type: Scheduled - Emergency Emergency Visit: No - New patient This patient is new to me today: Yes Date on this admission: 08/31/19
== END 2019-08-26 13:22 | disposition home or self-care (01) ==
LOC: FASUSAT 18:25 → FM/S 18:28 → FASUSAT 08-26 13:22
PROVIDERS: ATTEND Plastic Surgery
PROC: 0HRU0JZ Replacement of Left Breast with Synthetic Substitute, Open Approach (ICD-10-PCS; 2019-08-25)
PROC: 0HPU0JZ Removal of Synthetic Substitute from Left Breast, Open Approach (ICD-10-PCS; principal; 2019-08-25 14:16)
DX: C50.912 Malignant neoplasm of unspecified site of left female breast (principal)
CPT/HCPCS: 88304-TC; 94760